=== PATIENT | male | born 1955 | race Caucasian/White ===

== ENCOUNTER 2023-04-13 08:00 | Outpatient (CLI) | payer OTHER ==
[~2023-04-13] VITALS: Ht 165.1 cm; Wt 68.0 kg
== END 2023-04-13 15:00 | disposition home or self-care (01) ==
LOC: SLB 08:00 → EDSTATUS 04-15 11:15
PROVIDERS: ATTEND Surgery
DX: Z01.818 Encounter for other preprocedural examination (principal); K40.90 Unilateral inguinal hernia, without obstruction or gangrene, not specified as recurrent
CPT/HCPCS: 87081